=== PATIENT | male | born 1975 | race Caucasian/White ===

== ENCOUNTER → 2020-07-15 10:31 | Outpatient (BNVA) | payer BC, SELFPAY | PROVIDERS: Family Provider Family Medicine; PCP Family Medicine; Visit Provider Urology | DX: N40.1 Benign prostatic hyperplasia with lower urinary tract symptoms (principal); Z12.5 Encounter for screening for malignant neoplasm of prostate | CPT/HCPCS: 81003; G0103 ==

== ENCOUNTER 2022-07-13 11:36 | Outpatient (CLI) | payer BC, SELFPAY ==
[2022-07-13 13:16] LABS: PSA Screen - Urology 0.93 ng/mL (0-4)
== END 2022-07-13 11:37 | disposition home or self-care (01) ==
LOC: LAB 11:41
PROVIDERS: PCP Family Medicine; Visit Provider Urology
DX: Z12.5 Encounter for screening for malignant neoplasm of prostate (principal)
CPT/HCPCS: 81003; G0103

== ENCOUNTER → 2022-09-09 07:34 | Outpatient (BNVA) | payer BC, SELFPAY | PROVIDERS: PCP Family Medicine; Visit Provider Urology | DX: N40.1 Benign prostatic hyperplasia with lower urinary tract symptoms (principal); N32.81 Overactive bladder | CPT/HCPCS: 81003 ==

== ENCOUNTER 2023-07-28 06:55 | Day surgery (SDC) | payer BC, SELFPAY ==
[2023-07-28 07:11] VITALS: BP 126/94; PULSE 89; RESP 18; TEMP 36.1; O2SAT 98
[2023-07-28] MEDS: sodium chloride 0.9% 1,000 ML 30 ML IV (07:15)
[2023-07-28 07:27] VITALS: BMI 25.0
--- NOTE | 2023-07-28 07:28 | ANES.PREANE2 ---
Pre-Anesthetic Assessment Height/Weight: Height 1.73 m Temp Pulse Resp BP Pulse Ox O2 Del Method 97 F L 89 18 126/94 98 Room Air 07/28/23 07:11 07/28/23 07:11 07/28/23 07:11 07/28/23 07:11 07/28/23 07:11 07/28/23 07:11 Preop Diagnosis: Screening Operation Date: 07/28/23 08:00 Proposed Procedures p Colonoscopy 40265, G0105, Z12.11(Not Applicable) - Juan Antonio Howe DO Familial anesthetic complications: none Was Beta Geno taken within 24 hours: N/A Was Clonidine taken within 24 hours: N/A Last intake: Intake Last Liquid Date 07/27/23 Last Liquid Time 23:00 Last Solid Date 07/26/23 Last Intake: 23:00 Social No alcohol and No tobacco Exam alert, oriented x 3, clear to auscultation bilaterally and regular rate & rhythm Airway Submandibular: within normal limits Cervical ROM: within normal limits Mallampati: Class II Dentition: full Pulmonary None reported CV/HEM None reported None reported Hepatic None reported GI None reported Metabolic None reported Musc/skel Lower Back Pain Neuropsych None reported Anesthetic Plan ASA status: 1 Anesthesia: MAC Risk of > 500 ml blood loss (7ml/kg in children): No Medications/Allergies Home Medications Medication Instructions Recorded Confirmed Last Taken Type benzonatate 100 mg capsule 100 mg PO TID PRN cough 7 days #21 03/11/22 07/28/23 Unknown Rx caps tamsulosin 0.4 mg capsule 0.8 mg (2 x 0.4 mg) PO DAILY #180 06/19/22 07/26/23 07/26/23 Rx caps solifenacin 10 mg tablet 10 mg PO DAILY #30 tabs 07/13/22 07/26/23 07/26/23 Rx Allergies Allergy/AdvReac Type Severity Reaction Status Date / Time codeine Allergy Unknown Unknown Verified 07/28/23 07:19 Current Medications Generic Name Dose Route Start Last Admin Trade Name Freq PRN Reason Stop Dose Admin Sodium Chloride 1,000 mls @ 30 mls/hr 07/28/23 07:15 07/28/23 07:15 Sodium Chloride 0.9% IV 07/29/23 07:14 30 mls/hr .Q24H RYAN Administration PFSH Anesthesia Medical History Viral URI with cough BPH loc w urin obs/LUTS Family History Father Diabetes Social History Smoking and tobacco/nicotine status: never used tobacco/nicotine Alcohol intake: never Marital status: Current occupational status: employed Data Anesthesia Cardiac Studies: No Data to Display
--- NOTE | 2023-07-28 08:00 | W.PM.OPSUD ---
Surgery/Procedure H&P Update DATE OF PROCEDURE: July 28, 2023 DATE H&P PERFORMED: 07/15/23 H&P UPDATE INFORMATION: I have reviewed H&P completed within last 30 days, I have examined patient prior to procedure and No changes to prior documentation PREOP DIAGNOSIS: Screening PLANNED PROCEDURE: Operation Date: 07/28/23 08:00 Proposed Procedures p Colonoscopy 41289, G0105, Z12.11(Not Applicable) - Juan Antonio Howe DO
[2023-07-28 08:26] VITALS: BP 98/59; PULSE 71; RESP 18; O2SAT 98
[2023-07-28 08:36] VITALS: BP 108/68; PULSE 76; RESP 18; O2SAT 99
[2023-07-28 08:46] VITALS: BP 101/71; PULSE 65; RESP 18; O2SAT 97
--- NOTE | 2023-07-28 09:00 | ANE.PACU2 ---
Inpatient post-anesthesia follow up: Airway intact: Yes Vital signs: Temperature 97 F Pulse Rate 65 Respiratory Rate 18 Blood Pressure 101/71 Pulse Oximetry 97 Oxygen Delivery Me thod Room Air Oxygen Flow Rate Fraction of Inspir ed Oxygen Hydration adequate: Yes Nausea and vomiting: No Pain level: 1 Mental status: Baseline
== END 2023-07-28 09:00 | disposition home or self-care (01) ==
PROVIDERS: PCP Family Medicine; Visit Provider Surgery
PROC: 0DJD8ZZ Inspection of Lower Intestinal Tract, Via Natural or Artificial Opening Endoscopic (ICD-10-PCS; CPT 45378; principal; 2023-07-28 08:00)
DX: K63.5 Polyp of colon (principal); K62.89 Other specified diseases of anus and rectum
CPT/HCPCS: 45380; 45385; 88305; J2704; J7030